=== PATIENT | female | born 1975 | race Two or more races ===

== ENCOUNTER 2016-11-20 00:12 | Emergency (ER) | payer OTHER ==
--- NOTE | 2016-11-20 00:50 | ED Physician Chart ---
Chief Complaint/HPI - Patient Information Date Seen:: 11/20/16 Time Seen:: 00:30 Chief Complaint:: dizziness and blurred vision History of Present Illness:: while working became dizzy, had blurred vision and tingling of hands. Historian:: Patient, EMS Review:: Nurse's Note Reviewed Review of Systems - Review of Systems General/Constitutional: No fever, No chills Skin: No skin lesions Head: No headache Eyes: Acuity change ENT: No earache Neck: No neck pain Cardio Vascular: No chest pain, No palpitations Pulmonary: No SOB GI: No nausea, No vomiting G/U: No dysuria, No frequency Musculoskeletal: No bone or joint pain Endocrine: No polyuria, No polydipsia Psychiatric: No prior psych history, No depression, No anxiety Hematopoietic: No bruising Allergic/Immuno: No urticaria Neurological: No syncope Past Medical History - Past Medical History Obtainable: Yes Past Medical History: No significant medical hx, Dyslipidemia Family History: Heart disease Social History: Non Smoker Surgical History: None Psychiatricy History: None Physical Exam - Physical Examination General/Constitutional: Well-developed, well-nourished, Alert, No distress Other Gen/Cons comments:: tearful on arrival Head: Atraumatic Eyes: Lids, conjuctiva normal, PERRL Skin: Nl inspection ENMT: External ears, nose nl, TM canals nl Neck: No nuchal rigidity Respiratory: Nl effort/Exclusion, Clear to Auscultation Cardio Vascular: RRR, No murmur, gallop, rubs, NL S1 S2 GI: No tenderness/rebounding/guarding, No organomegaly, No hernia : No CVA tenderness Extremities: Normal digits & nails Neuro/Psych: Alert/oriented, No focal deficits Assessment - Assessment General Assessment: at 0054 ambulates near normally. ED Septic Shock - . Is Septic Shock (SBP<90, OR Lactate>4 mmol\L) present?: No Reassessment (Disposition) - Reassessment Reassessment Condition:: Improved - Diagnosis Diagnosis:: Anxiety episode - Aftercare/Follow up Instructions Aftercare/Follow-Up Instructions:: Refer to Discharge Instructions - Patient Disposition Discharge/Transfer:: Home Condition at Disposition:: Stable, Improved
== END 2016-11-20 01:10 | disposition home or self-care (01) ==
LOC: ER 00:12
DX: F41.9 Anxiety disorder, unspecified (principal); R51 Headache
CPT/HCPCS: Z7502; Z7610